=== PATIENT | female | born 1985 ===

== ENCOUNTER 2019-09-26 08:05 | Day surgery (SDC) | payer BC ==
[~2019-09-26 08:05] MED LIST: Dexamethasone 4 MG/ML 5 ML MDV ONE; Ketamine 500 mg/10 ML MDV ONE; Ketorolac 15 MG/ML SDV ONE; Lactated Ringers 1,000 ML IV SCH; Lidocaine 1% 4 ML ONE; Lidocaine 1%/Sod Bicarbonate in NS 8.4% 1 ML Syringe IDERM PRN; Midazolam 1 MG/ML 2 ML SDV ONE; Ondansetron 4 MG/2 ML SDV ONE; Propofol 200 MG/20 ML SDV ONE; Sodium Chloride 0.9% 10 ML Syringe FLUSH PRN; fentaNYL 100 MCG/2 ML SDV ONE
[2019-09-26] MEDS ORDERED: Lidocaine 1% with EPINEPHrine 1:100,000 20 ML MDV ONE (08:17)
[2019-09-26] MEDS ORDERED: Sodium Chloride 0.9% 50 ML SDV ONE (08:17)
[2019-09-26] MEDS ORDERED: ceFAZolin 1 GM Vial ONE (08:19)
--- NOTE | 2019-09-26 08:33 | PCM.PREANE ---
Preanesthetic Assessment - Procedure Proposed Procedure: Hysteroscopy D and C with Cold Knife Cone Biopsy - Anesthesia/Transfusion/Family Hx Anesthesia History: Prior Anesthesia Without Reaction Family History of Anesthesia Reaction: No - Review of Systems General: No Symptoms Pulmonary: No Symptoms Cardiovascular: No Symptoms Gastrointestinal: No Symptoms Neurological: Other (Fibromyalgia, Neck sorness/pain) Other: Reports: Neck Pain (With fibromyalgia flare ups) - Physical Assessment NPO Status Date: 09/25/19 NPO Status Time: 23:30 Vital Signs: Last Vital Signs Temp 36.8 C 09/26/19 08:00 Pulse 99 09/26/19 08:00 Resp 16 09/26/19 08:00 BP 126/70 09/26/19 08:00 Pulse Ox 100 09/26/19 08:00 Weight: 51 kg ASA Class: 2 Mental Status: Alert & Oriented x3 Airway Class: Mallampati = 2 Dentition: Reports: Implants (Upper single permanent) Thyro-Mental Finger Breadths: 2 Mouth Opening Finger Breadths: 3 ROM/Head Extension: Full Lungs: Clear to Auscultation, Normal Respiratory Effort Cardiovascular: Regular Rate, Regular Rhythm - Lab Values: Laboratory Last Values Urine Color Yellow (Yellow) 09/26/19 08:00 Urine Appearance Cloudy (Clear) H 09/26/19 08:00 Urine pH 6.0 (5.0-8.0) 09/26/19 08:00 Ur Specific Flasher > or = 1.030 (1.005-1.030) 09/26/19 08:00 Urine Protein Negative (Negative) 09/26/19 08:00 Urine Glucose (UA) Negative (Negative) 09/26/19 08:00 Urine Ketones Negative (Negative) 09/26/19 08:00 Urine Occult Blood Trace-lysed (Negative) H 09/26/19 08:00 Urine Nitrite Negative (Negative) 09/26/19 08:00 Urine Bilirubin Negative (Negative) 09/26/19 08:00 Urine Urobilinogen 0.2 (0.2-1.0) 09/26/19 08:00 Ur Leukocyte Esterase 2+ (Negative) H 09/26/19 08:00 Urine HCG, Qual Negative (NEGATIVE) 09/26/19 08:00 - Allergies Allergies/Adverse Reactions: Allergies Allergy/AdvReac Type Severity Reaction Status Date / Time Penicillins Allergy Diarrhea Verified 09/25/19 08:48 - Anesthesia Plan Pre-Op Medication Ordered: Anxiolytic - Acknowledgements Anesthesia Type Planned: MAC Pt an Appropriate Candidate for the Planned Anesthesia: Yes Alternatives and Risks of Anesthesia Discussed w Pt/Guardian: Yes Pt/Guardian Understands and Agrees with Anesthesia Plan: Yes PreAnesthesia Questionnaire HEENT History: Reports: Allergic Rhinitis Cardiovascular History: Reports: None Respiratory History: Reports: None Gastrointestinal History: Reports: None Genitourinary History: Reports: UTI, Recurrent, Other (See Below) Other Genitourinary History: ASCUS, CINI, dysuria, pelvic pain, urinary frequency, vaginal lesion, vaginitis, vulvular pain WAGON PERSON History: Reports: None Musculoskeletal History: Reports: None Neurological History: Reports: None Psychiatric History: Reports: None Endocrine/Metabolic History: Reports: None Hematologic History: Reports: None Immunologic History: Reports: None Oncologic (Cancer) History: Reports: None Dermatologic History: Reports: None - Infectious Disease History Infectious Disease History: Reports: None - Past Surgical History Head Surgeries/Procedures: Reports: None HEENT Surgical History: Reports: Adenoidectomy, Naso-Sinus Surgery, Oral Surgery , Tonsillectomy Cardiovascular Surgical History: Reports: None Respiratory Surgical History: Reports: None GI Surgical History: Reports: Colonoscopy Female Surgical History: Reports: None Male Surgical History: Reports: None Endocrine Surgical History: Reports: None Neurological Surgical History: Reports: None Musculoskeletal Surgical History: Reports: None Oncologic Surgical History: Reports: None Dermatological Surgical History: Reports: None - SUBSTANCE USE Smoking Status *Q: Never Smoker Recreational Drug Use History: No - HOME MEDS Home Medications: Home Meds Multivitamin [Poly-Vitamin] 1 tab PO DAILY 09/25/19 [History] Zolpidem Tartrate [Zolpidem Tartrate ER] 12.5 mg PO BEDTIME 09/25/19 [History] desog-e.estradioL/e.estradioL [Viorele 28 Day Tablet] 1 tab PO DAILY 09/25/19 [ History] - CURRENT (IN HOUSE) MEDS Current Meds: Current Medications Lactated Ringer's (Ringers, Lactated) 1,000 mls @ 125 mls/hr IV ASDIRECTED NICOLETTE Stop: 09/26/19 23:00 Lidocaine/Sodium Bicarbonate (Buffered Lidocaine 1% In Ns 8.4%) 0.25 ml IDERM ONETIME PRN PRN Reason: Prior to IV Start Stop: 09/26/19 23:00 Sodium Chloride (Saline Flush) 10 ml FLUSH ASDIRECTED PRN PRN Reason: Keep Vein Open Stop: 09/26/19 23:00 Discontinued Medications Cefazolin Sodium (Ancef) Confirm Administered Dose 2 gm .ROUTE .STK-MED ONE Stop: 09/26/19 08:20 Dexamethasone (Dexamethasone) Confirm Administered Dose 20 mg .ROUTE .STK-MED ONE Stop: 09/26/19 08:00 Fentanyl (Sublimaze) Confirm Administered Dose 100 mcg .ROUTE .STK-MED ONE Stop: 09/26/19 08:00 Lidocaine HCl (Xylocaine-Mpf 1%) Confirm Administered Dose 4 mls @ as directed .ROUTE .STK-MED ONE Stop: 09/26/19 08:00 Ketamine HCl (Ketalar) Confirm Administered Dose 500 mg .ROUTE .STK-MED ONE Stop: 09/26/19 08:00 Ketorolac Tromethamine (Toradol) Confirm Administered Dose 15 mg .ROUTE .STK- MED ONE Stop: 09/26/19 08:00 Lidocaine/Epinephrine (Xylocaine 1% With Epinephrine 1:100,000) Confirm Administered Dose 20 ml .ROUTE .STK-MED ONE Stop: 09/26/19 08:18 Midazolam HCl (Versed 1 Mg/Ml) Confirm Administered Dose 2 mg .ROUTE .STK-MED ONE Stop: 09/26/19 08:00 Ondansetron HCl (Zofran) Confirm Administered Dose 4 mg .ROUTE .STK-MED ONE Stop: 09/26/19 08:00 Propofol (Diprivan 20 Ml) Confirm Administered Dose 600 mg .ROUTE .STK-MED ONE Stop: 09/26/19 07:59 Sodium Chloride (Normal Saline) Confirm Administered Dose 50 ml .ROUTE .STK-MED ONE Stop: 09/26/19 08:18
--- NOTE | 2019-09-26 09:31 | PCM48HPAN ---
Post Anesthesia Note - EVALUATION WITHIN 48HRS OF ANESTHETIC Vital Signs in Normal Range: Yes Patient Participated in Evaluation: Yes Respiratory Function Stable: Yes Airway Patent: Yes Cardiovascular Function Stable: Yes Hydration Status Stable: Yes Pain Control Satisfactory: Yes Nausea and Vomiting Control Satisfactory: Yes Mental Status Recovered: Yes Vital Signs: Last Vital Signs Temp 36.8 C 09/26/19 08:00 Pulse 99 09/26/19 08:00 Resp 16 09/26/19 08:00 BP 126/70 09/26/19 08:00 Pulse Ox 100 09/26/19 08:00 0925 101/55 84 16 99% 98.1F
[2019-09-26] MEDS ORDERED: fentaNYL 100 MCG/2 ML SDV IVPUSH PRN (09:49)
[2019-09-26] MEDS ORDERED: Haloperidol Lactate 5 MG/ML SDV IVPUSH ONE (09:49)
[2019-09-26 11:34] VITALS: BP 98/47; PULSE 63
--- NOTE | 2019-09-26 12:00 | PCM.OPNOTE ---
- General Post-Op/Procedure Note Date of Surgery/Procedure: 09/26/19 Operative Procedure(s): Hysteroscopy, D&C, cervical cone biopsy Findings: Patient had endometrial debris but no endometrial polyps. There were no unusual findings grossly on the cervix. Uterus sounded to 7-1/2 cm Pre Op Diagnosis: 1. Cervical intraepithelial neoplasia. 2. Endometrial polyp Post-Op Diagnosis: Same but endometrial debris versus endometrial polyp. Anesthesia Technique: MAC Other Anesthesia Type: Lidocaine quarter percent with mL total localcervix Primary Surgeon: Michoacano Melendez Pathology: 1. Endometrial curettings 2. Cervical cone biopsy Fluid Replacement, Intraop: 800 EBL in mLs: 5 Complications: None Condition: Good Free Text/Narrative:: Surgery duration: 19 minutes Procedure: Patient was instructed as to procedure, its risks, benefits, limitations and follow-up and had signed a consent for surgery. The patient is taken the operative placed in a supine position on the operating table. She received 2 g of Ancef preoperatively for infection prophylaxis and had sequential compression stockings in place for DVT prophylaxis. Patient was given returned anesthesia. She is placed in a dorsal lithotomy position and prepped and draped in usual fashion. An exam under anesthesia was performed. Findings as described above. A weighted speculum was placed in the vagina. Cervix is visualized. It was grasped anteriorly with a single-tooth tenaculum. Uterus was then sounded to a depth of 7-1/2 cm. The cervix was dilated to allow passage of a 5 mm 12 rigid hysteroscope. This was placed without problem and normal saline was used as a distending medium. The endometrial cavity was visualized. Findings as described above. Decision was made to proceed with D&C. I then performed a D&C. Minimal amount tissue was obtained. Minimal bleeding was encountered. After the D&C was performed cold knife cone biopsy was then undertaken. The cervix was visualized and a stay suture was placed at the 3:00 and 9 o'clock position using #1 Vicryl suture. The Lugol solution was applied and the ectocervix appeared entirely normal. The cervix was infiltrated with lidocaine quarter percent with epinephrine-10 mL total. Cold knife cone biopsy was then performed. The specimen was tagged at 6 o'clock position with a piece of suture. The base the cone was then cauterized. Hemostasis was confirmed at the end of procedure. The stay suture tails were cut and the speculum was removed. Sponge instrument needle counts are correct at the end of the procedure. She was returned to supine position and awakened from general anesthesia. She tolerated the procedure well left the operating room in good condition.
== END 2019-09-26 12:00 | disposition home or self-care (01) ==
LOC: JD.SDS 08:05
PROVIDERS: ATTEND Obstetrics & Gynecology
DX: N87.0 Mild cervical dysplasia (principal); Z88.0 Allergy status to penicillin; Z79.899 Other long term (current) drug therapy
CPT/HCPCS: 36415; 58558; 81003; 81025; 85025; J0690; J1100; J1630; J1885; J2001; J2250; J2405; J2704; J3010; J7120; 00940